=== PATIENT | male | born 1955 | race Caucasian/White ===

== ENCOUNTER → 2019-03-04 09:34 | Oncology outpatient (ONC) | payer OTHER, SELFPAY ==
[2019-03-04 10:44] VITALS: BP 114/48; PULSE 58; RESP 16; TEMP 36.9; O2SAT 97
--- NOTE | 2019-03-04 12:28 | P.CONONC_ITS ---
History of Present Illness - Data of Consult Consult date: 03/04/19 Primary Care Provider: Samuel Ferrara MD - Consult Narrative Narrative: Diagnosis: MGUS, IgM kappa History of present illness: Dalton Marcelo is a 64 year old male who is referred for further evaluation of a newly discovered IgM paraprotein. Patient reports that he has previously been in good health. Over the last year so, he has been losing weight despite a good appetite. He also had some worsening arthritis and was possibly diagnosed with rheumatoid arthritis. He also was having some trouble with his balance and memory. Because of that he saw a neurologist. As part of his evaluation, he had immunofixation done that showed a trace IgM kappa. Serum free light chains showed a minimal elevation in the kappa free light chains at 21.1. The lambda light chains were normal with a normal ratio. His white count was normal at 3.8, hemoglobin is 13.9 hematocrit 42.8 with an MCV of 100. Platelets were 225,000. His creatinine was 0.6 calcium was 9.4. Paraneoplastic antibodies were all negative. He did have a positive GENARO. He thinks that over the last several months, his weight has stabilized. He has not noticed any adenopathy. No fevers or night sweats but does have occasional chills. He has had a little bit of a dry cough but no shortness of breath or pain in the chest. His appetite has been good. He is not having any early satiety or abdominal pain. No nausea or vomiting. Bowels have been moving normally. He denies any unusual bleeding or bruising. He does have some numbness in his lower extremities. He also has noted some Raynaud's phenomenon in his finger. He does have diffuse joint pain. His past medical history is notable for arthritis, possibly rheumatoid. He has had multiple orthopedic surgeries including a hip replacement and shoulder surgery. He has a history of depression. His family history is negative for malignancy. He does have a family history of strokes. Social history: He is . He lives on [address]. He previously worked for [employer] but now works at an [employer]. He does not smoke. He does have a history of alcohol use but quit drinking more than 10 years ago. CC: Eladio Dotson MD Home Medications and Allergies Home Medications Medication Instructions Recorded Confirmed Type acetaminophen 1,300 mg PO Q12H 03/04/19 03/04/19 History bupropion HCl [Wellbutrin XL] 300 mg PO QAM 03/04/19 03/04/19 History citalopram 40 mg PO DAILY 03/04/19 03/04/19 History dextroamphetamine 10 mg PO DAILY 03/04/19 03/04/19 History ibuprofen 800 mg PO PRN PRN 03/04/19 03/04/19 History multivitamin 1 tab PO DAILY 03/04/19 03/04/19 History ropinirole 0.25 mg PO DAILY 03/04/19 03/04/19 History tamsulosin 0.4 mg PO BID 03/04/19 03/04/19 History Allergies Allergy/AdvReac Type Severity Reaction Status Date / Time No Known Drug Allergies Allergy Verified 03/04/19 10:43 Review of Systems - Patient Self-Reported Symptoms SR Constitution: Chills, Weight loss/gain SR respiratory issues: Mucous SR Skin issues: Skin lesions or moles SR Genitourinary issues: Frequent urination SR Musculoskeletal issues: Joint pain or swelling, Back or neck pain, Cold hands or feet, Difficulty walking SR Neuro issues: Numbness or tingling, Difficulty balancing SR Endocrine issues: Cold intolerance Constitutional: weight loss, normal activity level Eyes: no change in vision Ears, nose, mouth, throat: no vertigo, no lightheadedness Cardiovascular: no chest pain, no palpitations, no dyspnea on exertion Respiratory: cough, no shortness of breath Gastrointestinal: no change in appetite, no abdominal pain Musculoskeletal: pain, swelling Integumentary: no rash, no bleeding or bruising Psychiatric: anxiety, depression Hematologic/Lymphatic: no anemia, no enlarged lymph nodes Exam Vital signs: Vital Signs Temp Pulse Resp BP Pulse Ox 03/04/19 10:44 98.4 F 58 L 16 114/48 L 97 Intake and Output 03/03/19 03/04/19 03/04/19 23:59 07:59 15:59 Other: Weight 82.4 kg Patient Weight 03/04/19 23:59 Weight 82.4 kg - Constitutional positive no acute distress, positive average body habitus - Routine HEENT Exam Head: Present: normocephalic, atraumatic Eye: Present: EOMI, PERRL. Absent: conjunctival icterus, scleral injection ENT: Present: mucous membranes moist, oropharynx clear - Routine Neck Exam Present: supple. Absent: lymphadenopathy, thyromegaly - Routine Chest/Breast/Axilla Exam Axillae: Absent: lymphadenopathy - Routine Respiratory Exam Present: Clear to auscultation bilaterally. Absent: rales, wheezes - Routine Cardiovascular Exam Present: RRR, S1, S2. Absent: murmur - Routine Abdominal Exam Present: soft, normoactive bowel sounds. Absent: tenderness, organomegaly, mass - Routine Extremities Exam Absent: cyanosis, clubbing, edema - Routine Back/Spine Exam Back/Spine: Absent: vertebral tenderness - Routine Skin Exam Present: intact. Absent: petechiae, rash - Routine Neurological Exam Present: alert, oriented X3 - Routine Psychiatric Exam Present: normal affect, normal thought process Assessment and Plan (1) MGUS (monoclonal gammopathy of unknown significance) Current visit: Yes Status: Acute Of 64-year-old man with recently discovered low level IgM paraprotein. He does not have any anemia, adenopathy. There's been no renal insufficiency or hypercalcemia. His x-rays have not shown any lytic lesions although he has not had a full skeletal survey. With IgM subtype, this is more likely to represent a lymphoplasmacytic lymphoma or Waldenstroms rather than a multiple myeloma. However sometimes patients with autoimmune conditions such as rheumatoid arthritis or chronic inflammatory conditions can have a low level paraprotein detected. I am not sure that his paraprotein explains any of his current symptoms. However to rule out an underlying lymphoplasmacytic lymphoma, the patient would feel more comfortable proceeding with a bone marrow biopsy. Will trying get that scheduled in the next few weeks.
== END ==
LOC: ONC 09:39
PROVIDERS: PCP Family Medicine
DX: D47.2 Monoclonal gammopathy (principal); M19.90 Unspecified osteoarthritis, unspecified site; F32.9 Major depressive disorder, single episode, unspecified
CPT/HCPCS: 99204; 99214